=== PATIENT | female | born 1970 | race African-American/Black ===

== ENCOUNTER → 2018-05-10 | Outpatient (CLI) | payer OTHER ==
[~2018-05-10] MED LIST: ALBU1.25 IH; ALBU6.7H IH; FLUO40CA9 PO; FLUT1DIS5 IH; IPRA4AER IH; MELO15TA6 PO; MONT10TA6 PO; SULF1TAB24 PO
--- NOTE | 2018-05-10 11:54 | DIREP ---
PROCEDURE:CT ABDOMEN/PELVIS W/O CONTRAST COMPARISON:None. INDICATIONS:HEMATURIA, no appendix, only left ovary TECHNIQUE:Axial images were created through the abdomen and pelvis without intravenous contrast material. No oral contrast was administered. Sagittal and coronal reconstructions were performed from source images. FINDINGS: LUNG BASES:Normal. No visible pulmonary or pleural disease. LIVER:Normal. No significant liver lesions are identified. BILIARY:Normal. No visible dilatation or calcification. PANCREAS:Normal. No lesion, fluid collection, ductal dilatation, or atrophy. SPLEEN:Normal. No enlargement or focal lesion. ADRENALS:Normal. No mass or enlargement. URINARY TRACT:Normal. No focal lesions or hydronephrosis. No nephrolithiasis, ureterolithiasis or ureteral obstruction. AORTA/VASCULAR:Normal. No aneurysm. RETROPERITONEUM:Normal. No mass or adenopathy. BOWEL/MESENTERY:Normal. There is no intestinal obstruction, free fluid, free air or mesenteric inflammatory changes. Appendectomy. ABDOMINAL WALL:Normal. No mass or hernia. PELVIC ORGANS:Normal. No visible mass. Pelvic organs appropriate for patient age. BONES:Mild degenerative changes in the thoracolumbar spine. OTHER:Negative. CONCLUSION: 1. No definite abnormality identified to account for patient's hematuria. Appendectomy. Mild degenerative changes in the thoracolumbar spine. No other findings. Dictated by: Derrick Mckeon M.D. on 05/10/2018 at 11:49 AM
== END | disposition home or self-care (01) ==
LOC: RAD 08:00
PROVIDERS: ATTEND Urology
DX: R31.21 Asymptomatic microscopic hematuria (principal); M47.895 Other spondylosis, thoracolumbar region; Z90.89 Acquired absence of other organs
CPT/HCPCS: 74176

== ENCOUNTER → 2020-11-22 | Outpatient (CLI) | payer OTHER ==
[~2020-11-22] MED LIST changes: -ALBU6.7H IH; +ALBU6.7H8 IH
[2020-11-22] MEDS: LEXISCAN IV ONE (12:43)
--- NOTE | 2020-11-23 05:04 | PRP ---
DATE OF PROCEDURE: 11/22/2020 DICTATOR NAME: RHEA TREADWELL DO ARTERIAL DOPPLER ULTRASOUND OF THE RIGHT LOWER EXTREMITY INDICATION: Intermittent claudication. DESCRIPTION OF PROCEDURE: Right lower extremity: The right common femoral artery has a peak systolic velocity of 197 cm per second with biphasic waveforms visualized. The right profunda femoris artery has a peak systolic velocity of 143 cm per second with biphasic forms visualized. The right superficial femoral artery has a peak systolic velocity of 202 cm per second with triphasic waveforms visualized in the proximal and mid segments and biphasic waveforms in the distal segment. The right popliteal artery has a peak systolic velocity of 63 cm per second with triphasic waveforms visualized. The right posterior tibial artery has a peak systolic velocity of 60 cm per second with biphasic waveforms visualized throughout. The right anterior tibial artery has a peak systolic velocity of 66 cm per second with biphasic waveforms visualized throughout. The right lower extremity ankle-brachial index is 0.9. IMPRESSION: 1. There is no evidence of hemodynamically significant stenosis in the right lower extremity. 2. The right lower extremity ankle-brachial index is noted to be within normal limits. Frances VIRGEN D.O. DR: KA/SAN TID: [id number] RECEIPT: [id number]
--- NOTE | 2020-11-23 05:12 | STRESS ---
DATE OF SERVICE: 11/22/2020 DICTATOR NAME: RHEA MILE CARDIAC STRESS TEST INDICATION: Chest pain. FINDINGS: Baseline EKG shows normal sinus rhythm, normal ECG. Stress EKG normal sinus rhythm, unchanged from baseline. At the end of recovery, EKG shows normal sinus rhythm, unchanged from baseline. Baseline heart rate is 61 beats per minute and renny to 86 beats per minute during stress. At the end of recovery, the heart rate was 92 beats per minute. Baseline blood pressure is 133/86 and remained the same during stress. At the end of recovery, the blood pressure was 131/82. Blood pressure and heart rate were appropriate for stress. There were no significant symptoms noted during stress. There were no arrhythmias noted during stress. EKG portion of stress test is negative for myocardial ischemia. Nuclear images were obtained with a rest dose of 10.27 mCi technetium 99 sestamibi and stress dose of 33.5 mCi technetium 99 sestamibi. Nuclear images revealed a large area of periinfarct ischemia involving the inferior wall. There is also a large area of reversible perfusion defect involving the septal wall and suggestive of myocardial ischemia. TID is 1.21. There is no evidence of diaphragmatic attenuation artifact. Left ventricular ejection fraction is 55%. EDV is 101 mL, ESV is 45 mL. Left ventricle is normal in size. Gated motion images shows normal wall motion across all segments of the left ventricle. IMPRESSION: 1. There is a large area of periinfarct ischemia involving the inferior wall. 2. There is a large area of reversible perfusion defect involving the septal wall suggestive of myocardial ischemia. 3. This is an abnormal study. Recommend left heart catheterization. Frances VIRGEN D.O. DR: KA TID: [id number] RECEIPT: [id number]
== END | disposition home or self-care (01) ==
LOC: RAD 11:02
PROVIDERS: ATTEND Internal Medicine Interventional Cardiology
DX: I25.89 Other forms of chronic ischemic heart disease (principal); I73.9 Peripheral vascular disease, unspecified
CPT/HCPCS: 78452; 93017; 93922; 93926; A9500; J2785